=== PATIENT | female | born 1990 | race Caucasian/White ===

== ENCOUNTER 2017-03-19 10:50 | Day surgery (SDC) | payer OTHER ==
[~2017-03-19] VITALS: Ht 165.1 cm; Wt 56.7 kg
[2017-03-19] MEDS ORDERED: LACTATED RINGERS 1,000 ML IV SCH (11:30)
[2017-03-19 11:52] VITALS: BP 111/70
[2017-03-19] MEDS ORDERED: NONE PER PT (11:52)
[2017-03-19 12:15] LABS: HCG UR OBC PASS
[2017-03-19] MEDS ORDERED: BUPIVACAINE/PF 0.25% ONE (13:08)
[2017-03-19] MEDS ORDERED: EPINEPHRINE 1 MG/ML, 1ML ONE ×2 (13:08→13:43)
[2017-03-19] MEDS ORDERED: SILVER NITRATE STICK TP ONE (13:08)
[2017-03-19] MEDS ORDERED: BUPIVACAINE/PF 0.5% ONE ×2 (13:12→13:43)
[2017-03-19] MEDS ORDERED: HYDROmorphone 1 MG/ML, 1ML ONE (13:17)
[2017-03-19] MEDS ORDERED: MIDAZOLAM 1 MG/ML, 2ML ONE (13:17)
[2017-03-19] MEDS ORDERED: FENTANYL PF 100 MCG/2ML ONE ×2 (13:17→14:39)
[2017-03-19] MEDS ORDERED: GLYCOPYRROLATE 0.2MG/1ML ONE (13:25)
[2017-03-19] MEDS ORDERED: PROPOFOL 10 MG/ML, 20ML ONE (13:25)
[2017-03-19] MEDS ORDERED: PROPOFOL 10 MG/ML, 50ML ONE (13:25)
[2017-03-19] MEDS ORDERED: ONDANSETRON 2MG/ML, 2ML ONE ×2 (13:25→14:56)
[2017-03-19] MEDS ORDERED: DEXAMETHASONE 4 MG/ML, 1ML ONE (13:25)
[2017-03-19] MEDS ORDERED: CEFAZOLIN 1,000 MG ONE (13:25)
[2017-03-19] MEDS ORDERED: NEOSTIGMINE 1 MG/ML, 10ML ONE (13:25)
[2017-03-19] MEDS ORDERED: ROCURONIUM 10 MG/ML ONE (13:25)
[2017-03-19] MEDS ORDERED: SUCCINYLCHOLINE 20 MG/ML, 10ML ONE (13:25)
[2017-03-19] MEDS ORDERED: BUPIVACAINE/PF-EPI 0.5% 1:200K INFIL ONE (13:57)
[2017-03-19] MEDS ORDERED: MEPERIDINE/PF 25MG/0.5ML IVPush PRN (14:00)
[2017-03-19] MEDS ORDERED: HYDROmorphone 1 MG/ML, 1ML IV PRN (14:00)
[2017-03-19] MEDS ORDERED: OXYcodone 5 MG/5 ML ORAL.SOL UDC PO PRN (14:00)
[2017-03-19] MEDS ORDERED: ONDANSETRON 2MG/ML, 2ML IVPush PRN (14:00)
[2017-03-19] MEDS ORDERED: ACETAMINOPHEN 325 MG TABLET PO PRN (14:00)
[2017-03-19] MEDS ORDERED: MEPERIDINE/PF 50 MG/ML ONE (14:02)
[2017-03-19] MEDS ORDERED: ACETAMINOPHEN 650 MG/20.3 ML UDC ONE (14:39)
[2017-03-19] MEDS ORDERED: OXYcodone 5 MG/5 ML ORAL.SOL UDC ONE (14:39)
[2017-03-19] MEDS: FENTANYL PF 100 MCG/2ML IV PRN ×2 (14:41→14:59)
[2017-03-19] MEDS ORDERED: PROMETHAZINE 25 MG SUPP PR ONE (16:42)
[2017-03-19] MEDS ORDERED: PROMETHAZINE 25 MG SUPP PR PRN (17:00)
[2017-03-19] MEDS ORDERED: DIPHENHYDRAMINE 50 MG/ML, 1ML ONE (17:45)
[2017-03-19] MEDS ORDERED: DIPHENHYDRAMINE 50 MG/ML, 1ML IVPush ONE (18:00)
[2017-03-19] MEDS ORDERED: SCOPOLAMINE PATCH, 1.5MG PATCH.TD72 TD ONE ×2 (18:08→18:30)
== END 2017-03-19 18:35 | disposition home or self-care (01) ==
LOC: OUT 10:50
PROVIDERS: ATTEND Obstetrics & Gynecology
DX: Z30.2 Encounter for sterilization (principal); N83.12 Corpus luteum cyst of left ovary; G43.909 Migraine, unspecified, not intractable, without status migrainosus; Z80.3 Family history of malignant neoplasm of breast; Z83.3 Family history of diabetes mellitus; Z88.0 Allergy status to penicillin
CPT/HCPCS: 58662; 58673; 81025; 88302; 88305; J0171; J0330; J0690; J1100; J1170; J1200; J2175; J2250; J2405; J2704; J2710; J3010; J3490; J7120